=== PATIENT | male | born 1970 | race Hispanic/Latino ===

== ENCOUNTER 2020-04-09 17:10 | Emergency (ER) | payer SELFPAY ==
--- NOTE | ~2020-04-09 | CT_ITS ---
EXAMINATION: CT abdomen pelvis wo con EXAM DATE: 04/09/2020 18:12 INDICATION: Hematuria. TECHNIQUE: Spiral CT of the abdomen and pelvis was performed without contrast. Axial, coronal and sag ittal images were reviewed. The dose-length product (DLP) for this examination was 181.04 mGy-cm. T he exposure was tailored according to patient size (auto mA exposure control), and iterative reconstr uction (ASIR) was used as additional dose reduction technique. There is no prior study for compariso n. FINDINGS: There is no nephrolithiasis or hydronephrosis. The prostate is unremarkable. There is mo derate diffuse bladder wall thickening with indistinct wall, appearance is suspicious for cystitis. The liver, spleen, adrenal glands and pancreas are unremarkable. Gallbladder is unremarkable. No bi liary obstruction. There is no retroperitoneal or pelvic lymphadenopathy. Small bilateral inguinal fat-containing hernias. The appendix is normal. The stomach and small bowel are unremarkable. There is mild scattered coloni c diverticulosis. There is no adjacent inflammatory change to suggest diverticulitis. No free intra peritoneal gas. The heart is normal in size. There are no pericardial or pleural effusions. The l jeff bases are unremarkable. There are no osteoblastic or osteolytic lesions identified. IMPRESSION: 1. Bladder wall thickening, mild adjacent fat stranding. Could be cystitis. 2. No obstructive nephropathy or acute findings. 3. Colonic diverticulosis. 4. Small inguinal areas. Reviewed, dictated and finalized at location A.
[2020-04-09 17:12] VITALS: BP 138/81; PULSE 76; RESP 20; TEMP 36.9; O2SAT 99
--- NOTE | 2020-04-09 17:32 | ED.MALEGU ---
HPI - Male Genitourinary General Chief complaint: Urogenital-Male Stated complaint: hematuria Time Seen by Provider: 04/09/20 17:25 Source: patient Mode of arrival: ambulatory Limitations: no limitations History of Present Illness HPI Narrative: Patient is a 49-year-old male who presents to the emergency department with complaint of hematuria, dysuria, and bilateral flank pain. Patient reports onset of symptoms 3 days ago. Patient denies any fever, nausea, vomiting, or diarrhea. Patient denies any prior episodes. Complaint: dysuria and other (Hematuria) Onset (ago): day(s) Location: right flank and left flank Related Data Allergies Allergy/AdvReac Type Severity Reaction Status Date / Time No Known Allergies Allergy Verified 04/09/20 17:14 Review of Systems Review of Systems: All systems reviewed & are unremarkable except as noted in HPI and below PMFSH Past Medical History Medical History (Updated 04/09/20 @ 19:23 by Vanessa Zamudio MD) Seizure disorder Surgical History Surgical History (Updated 04/09/20 @ 17:37 by Vanessa Zamudio MD) No significant past surgical history Social History Social History (Updated 04/09/20 @ 17:37 by Vanessa Zamudio MD) Smoking status: Never smoker Exam Const: General: cooperative, no acute distress and alert Nutritional Appearance: well nourished Orientation/consciousness: patient oriented x3 Limitations: no limitations HENMT: Mouth: Yes lip normal and Yes moist mucous membranes Resp: Effort & Inspection: normal respiratory effort Auscultation: clear to auscultation bilaterally Cardio: Rate: regular rate Rhythm: regular rhythm GI: GI Palp: Yes Soft to palpation and No Tenderness to palpation present (GI) Auscultation: normal bowel sounds Back/Spine/Pelvis: Back: no CVA tenderness Thoracic/Lumbar Spine: thoraco-lumbar ROM normal Skin: General skin exam: normal color Neuro: General: patient oriented x3 Cognition (Neuro): normal cognition Speech: normal speech Extrem: General: normal to inspection, full ROM and no clubbing, cyanosis or edema Psych: Mental Status: mental status grossly normal Affect: normal affect Attitude: cooperative Course Course Emergency Course: Patient with findings of urinary tract infection. Vital signs are normal. No findings to suggest sepsis. No urinary obstruction noted on imaging. Will prescribe antibiotics and advised importance of primary care follow-up with his doctor in [place]. Vital Signs Vital signs: Vital Signs Temperature 98.4 F 04/09/20 17:12 Pulse Rate 76 04/09/20 17:12 Respiratory Rate 20 04/09/20 17:12 Blood Pressure 138/81 04/09/20 17:12 Pulse Oximetry 99 04/09/20 17:12 Temperature 98.4 F 04/09/20 17:12 Pulse Rate 76 04/09/20 17:12 Respiratory Rate 20 04/09/20 17:12 Blood Pressure 138/81 04/09/20 17:12 Pulse Oximetry 99 04/09/20 17:12 MDM - Male Genitourinary Lab Data Attestation: I reviewed the patient's lab results. Result diagrams: 04/09/20 18:01 04/09/20 18:01 Labs: Lab Results 04/09/20 04/09/20 04/09/20 Range/Units 18:01 18:01 18:01 WBC 12.6 H (4.5-10.0) K/mm3 RBC 4.85 (4.6-6.20) M/mm3 Hgb 14.8 (14.0-18.0) g/dL Hct 43.6 (42.0-52.0) % MCV 89.9 (80-100) fl MCH 30.5 (26-34) pg MCHC 33.9 (32-36) g/dl RDW 12.0 (11.5-14.5) % Plt Count 167 (150-375) k/mm3 MPV 11.4 H (7.4-10.4) fl Immature Gran % (Auto) 0.5 (0-0.5) % Neut % (Auto) 74.0 H (45.5-73.1) % Lymph % (Auto) 16.3 L (18.3-44.2) % Delta % (Auto) 7.8 (2.6-8.5) % Eos % (Auto) 1.0 (0-4.4) % Baso % (Auto) 0.4 (0.2-1.2) % Lymph # (Auto) 2.06 (0.9-3.2) K/mm3 Delta # (Auto) 1.0 H (0.1-0.6) K/mm3 Eos # (Auto) 0.1 (0-0.3) K/mm3 Baso # (Auto) 0.1 (0.0-0.1) K/mm3 Abs Immat Gran (auto) 0.06 H (0.00-0.031) K/mm3 Absolute Neuts (auto) 9.4 H (1.3-6.7) K/
[2020-04-09 18:12] LABS: Basophils Absolute Auto 0.1 K/mm3 (0.0-0.1); Basophils Percent Auto 0.4 % (0.2-1.2); Eosinophils Absolute Auto 0.1 K/mm3 (0-0.3); Hematocrit 43.6 % (42.0-52.0); Hemoglobin 14.8 g/dL (14.0-18.0); Immature Granulocyte Absolute 0.06 K/mm3 (0.00-0.031); Immature Granulocyte Percent A 0.5 % (0-0.5); Lymphocytes Absolute Auto 2.06 K/mm3 (0.9-3.2); Lymphocytes Percent Auto 16.3 % (18.3-44.2); Mean Corpuscular HGB Conc 33.9 g/dl (32-36); Mean Corpuscular Hemoglobin 30.5 pg (26-34); Mean Corpuscular Volume 89.9 fl (80-100); Mean Platelet Volume 11.4 fl (7.4-10.4); Monocytes Percent Auto 7.8 % (2.6-8.5); Neutrophils Absolute Auto 9.4 K/mm3 (1.3-6.7); Platelet Count Result 167 k/mm3 (150-375); Red Blood Count 4.85 M/mm3 (4.6-6.20); White Blood Count 12.6 K/mm3 (4.5-10.0)
[2020-04-09 18:23] LABS: Add Urine Microscopic? YES; Appearance Urine Cloudy (Clear); Bacteria Urine Trace /hpf; Bilirubin Urine Negative (Negative); Blood Urine 3+ (Negative); Color Urine Amber (Yellow); Glucose Urine UA Negative (Negative); Ketones Urine Negative (Negative); Leukocyte Esterase Ur 2+ LEU/UL (Negative); Mucus Urine Few /lpf; Nitrate Urine Negative (Negative); Protein Urine 2+ mg/dL (Negative); RBC Urine >75 /hpf (0-2); Specific Grav Ur 1.029 (1.001-1.035); WBC Urine >75 /hpf
[2020-04-09 18:24] LABS: Alanine Aminotransferase 37 U/L (4-50); Albumin Level 4.4 g/dL (3.5-5.1); Alkaline Phosphatase 69 U/L (38-126); Aspartate Amino Transferase 32 U/L (17-59); Bilirubin,Total 0.9 mg/dL (0.2-1.3); Blood Urea Nitrogen 11 mg/dL (9-20); Carbon Dioxide 28 mmol/L (22-30); Chloride 101 mmol/L (98-107); Estimated Glomerular Filt Rate > 60; Glucose 124 mg/dL (75-110); Potassium 4.3 mmol/L (3.4-5.0); Sodium 135 mmol/L (137-145)
[2020-04-09] MEDS: CEFDINIR 300 MG CAPSULE PO (20:04)
== END 2020-04-09 20:07 | disposition home or self-care (01) ==
PROVIDERS: Emergency Provider Emergency Medicine
DX: N39.0 Urinary tract infection, site not specified (principal); K57.90 Diverticulosis of intestine, part unspecified, without perforation or abscess without bleeding
CPT/HCPCS: 36415; 74176; 80053; 81001; 85025; 87077; 87086; 87088; 87186; 99284; A9270

== ENCOUNTER 2022-06-25 09:50 | Outpatient (CLI) | payer OTHER, MEDICAID, SELFPAY ==
--- NOTE | ~2022-06-25 | XR_ITS ---
XR elbow LT min 3V 06/25/2022 10:17 Indication: Left elbow pain Procedure: 4 views left elbow Comparison: No prior studies for comparison. Findings: No fracture, subluxation or dislocation. No significant soft tissue abnormality. No joint e ffusion. No foreign bodies. Impression: 1: No significant bone or joint abnormality. Reviewed, dictated and finalized at location A. Impression: 1: No significant bone or joint abnormality.
== END 2022-06-25 09:51 | disposition home or self-care (01) ==
DX: M79.602 Pain in left arm (principal)
CPT/HCPCS: 73080

== ENCOUNTER 2023-07-26 13:23 | Emergency (ER) | payer BC, SELFPAY ==
[2023-07-26 13:42] VITALS: BP 137/91; PULSE 72; RESP 16; TEMP 37.1; O2SAT 98
--- NOTE | 2023-07-26 15:04 | ED.GENADULT ---
HPI - General Adult General Chief complaint: Upper Respiratory Infection Stated complaint: Sinus/Back Pain Source: patient Mode of arrival: ambulatory Limitations: no limitations History of Present Illness HPI narrative: Patient presents for evaluation of sick symptoms for last 3 days. Symptoms include fever, headache, sore throat, runny nose, cough. No nausea, vomiting, diarrhea, shortness of breath. His is being evaluated here for similar symptoms. He tried taking [id number] cough and cold medicine as well as some allergy medication. He does not smoke. Related Data Home Medications Medication Instructions Recorded Confirmed atorvastatin 20 mg tablet mg 07/26/23 Allergies Allergy/AdvReac Type Severity Reaction Status Date / Time No Known Allergies Allergy Verified 04/09/20 17:14 Review of Systems Review of Systems: CONSTITUTIONAL: Reports fever. Denies chills, or sweats. EYES: Denies visual changes, redness, or discharge. ENT: Reports sore throat and runny nose. Denies otalgia. CARDIOVASCULAR: Denies chest pain, palpitations, or edema. RESPIRATORY: Reports cough. Denies SOB GASTROINTESTINAL: Denies abdominal pain, nausea, vomiting, or diarrhea. GENITOURINARY: Denies dysuria or hematuria. SKIN: Denies rash or itching. MUSCULOSKELETAL: Denies back pain, joint pain, or myalgia. NEUROLOGIC: Reports headache. Denies numbness, dizziness, or weakness. PSYCHIATRIC: Denies anxiety or depression. PMFSH Past Medical History Medical History Seizure disorder Surgical History Surgical History No significant past surgical history Family History Family History Mother Family history non-contributory Social History Social History Smoking status: Never smoker Substance use: never Living arrangements: with family Gender identity (if verbalized by the patient): Male Sexual Orientation (if Verbalized by the Patient): Straight or Heterosexual Spiritual care concerns: No Exam Narrative: GENERAL: Well-appearing, well-nourished, and in no acute distress. HEAD: Normocephalic, atraumatic. EYES: PERRLA and EOMI. ENT: Nares clear, no rhinorrhea or epistaxis. Mucous membranes moist. Oropharynx without tonsillar hypertrophy exudate or other lesions. Bilateral TMs pearly baxter nonbulging NECK: Supple. No adenopathy or masses. No carotid bruits or JVD CHEST: Clear to auscultation. No respiratory distress. No wheezes rales or rhonchi HEART: Regular rate and rhythm. No murmur heard. Normal peripheral pulses. ABDOMEN: Soft, nontender, nondistended, normal active bowel sounds. EXTREMITIES: Normal range of motion. No edema. SKIN: Warm, dry, no rash. NEURO: No focal deficits. Alert and oriented x3. PSYCH: Normal mood and affect. Course Course Emergency Course: This is a 52-year-old male who presented for evaluation of sick symptoms. COVID and strep were both negative. He appears well clinically. Advised on supportive measures. Increase hydration. Mrkl-eja-[id number] agents for symptom management. Follow up with primary provider. Go to the emergency department for worsening symptoms. Patient in agreement with plan of care. Level of Care: Express Care Visit Vital Signs Vital signs: Vital Signs Temperature 37.1 C 07/26/23 13:42 Pulse Rate 72 07/26/23 13:42 Respiratory Rate 16 07/26/23 13:42 Blood Pressure 137/91 H 07/26/23 13:42 Pulse Oximetry 98 07/26/23 13:42 Oxygen Delivery Room Air 07/26/23 13:42 Temperature 37.1 C 07/26/23 13:42 Pulse Rate 72 07/26/23 13:42 Respiratory Rate 16 07/26/23 13:42 Blood Pressure 137/91 H 07/26/23 13:42 Pulse Oximetry 98 07/26/23 13:42 Oxygen Delivery Room Air
== END 2023-07-26 15:09 | disposition home or self-care (01) ==
PROVIDERS: Emergency Provider Nurse Practitioner; PCP Physician Assistant
DX: U07.1 COVID-19 (principal)
CPT/HCPCS: 87081; 87426; 87804; 87880; 99213; C9803; G0463

== ENCOUNTER 2023-07-31 14:51 | Emergency (ER) | payer BC, SELFPAY ==
[2023-07-31 15:01] VITALS: BP 129/85; PULSE 70; RESP 16; TEMP 36.6; O2SAT 100
--- NOTE | 2023-07-31 16:03 | ED.URI ---
HPI - URI/Sore Throat General Chief Complaint: Upper Respiratory Infection Stated Complaint: Sinus Time Seen by Provider: 07/31/23 16:03 Source: patient Mode of arrival: ambulatory Limitations: no limitations History of Present Illness HPI Narrative: 52-year-old male present to [facility] care with complaints of continued sinus congestion with drainage and some cough post COVID. Patient reports that he is here today to be retested. Patient denies any fevers chills or present body aches. Patient reports that he did quarantine as he was instructed and has been fever free. Explained that there is no need to retest that he may show positive for several weeks post COVID.Patient reports that he has been taking some OTC sinus medications without improvement. Pertinent past history: other (tested positive for COVID 1 week ago) Onset (ago): day(s) (07/23/2023) Severity: mild Description of mucous: clear Able to tolerate fluids by mouth: Yes Treatments prior to arrival: other (sinus medication) Related Data Home Medications Medication Instructions Recorded Confirmed atorvastatin 20 mg tablet mg 07/26/23 Allergies Allergy/AdvReac Type Severity Reaction Status Date / Time No Known Allergies Allergy Verified 07/31/23 15:52 Review of Systems Review of Systems: CONSTITUTIONAL: Denies fever, chills, or sweats. EYES: Denies visual changes, redness, or discharge. ENT: Denies rhinorrhea, congestion, sore throat, or otalgia. CARDIOVASCULAR: Denies chest pain, palpitations, or edema. RESPIRATORY: reports cough no dyspnea. GASTROINTESTINAL: Denies abdominal pain, nausea, vomiting, or diarrhea. GENITOURINARY: Denies dysuria or hematuria. SKIN: Denies rash or itching. MUSCULOSKELETAL: Denies back pain, joint pain, or myalgia. NEUROLOGIC: Denies headache, numbness, or weakness. PSYCHIATRIC: Denies anxiety or depression. All systems reviewed & are unremarkable except as noted in HPI and below PMFSH Past Medical History Medical History Seizure disorder Serum cholesterol elevated Surgical History Surgical History No significant past surgical history Family History Family History Mother Family history non-contributory Social History Social History Smoking status: Never smoker Substance use: never Living arrangements: with family Gender identity (if verbalized by the patient): Male Sexual Orientation (if Verbalized by the Patient): Straight or Heterosexual Spiritual care concerns: No Comments At time of signature, agree with nursing past medical, surgical, social and family history. There is no relevant family history pertinent to the presenting complaint Exam Narrative: GENERAL: Well-appearing, well-nourished, and in no acute distress. HEAD: Normocephalic, atraumatic. EYES: PERRLA and EOMI. ENT: Nares clear, clear rhinorrhea no epistaxis. Mucous membranes moist.TM's normal throat pink with no lesions or exudates or tonsil swelling NECK: Supple.no lymphadenopathy CHEST: Clear to auscultation. No respiratory distress.cough,SAO2 100% on room air HEART: Regular rate and rhythm. No murmur heard. Normal peripheral pulses. ABDOMEN: Soft, nontender, nondistended, normal active bowel sounds. EXTREMITIES: Normal range of motion. No edema. SKIN: Warm, dry, no rash. NEURO: No focal deficits. Alert and oriented x3. Course Course Emergency Course: Patient is aware of diagnosis, understands and agrees to treatment plan.? Anticipatory guidance given.? Patient agrees to follow-up as directed and is aware of reasons to seek care at the emergency department. Portions of this record may have been created with voice recognition software Level of Care: Express Care Visit Vital Signs Vital signs: Vital Sig
== END 2023-07-31 16:32 | disposition home or self-care (01) ==
PROVIDERS: Emergency Provider Registered Nurse; PCP Physician Assistant
DX: J06.9 Acute upper respiratory infection, unspecified (principal); G40.909 Epilepsy, unspecified, not intractable, without status epilepticus
CPT/HCPCS: 99213; G0463